=== PATIENT | female | born 2000 ===

== ENCOUNTER 2021-07-15 23:24 | Emergency (ER) | payer MEDICAID ==
[2021-07-16 01:25] LABS: Bilirubin,Urine NEG (Negative); Blood,Urine LG (Negative); Color,Urine Straw (Yellow); Mucus,Urine FEW /HPF; Protein,Urine <15 mg/dL mg/dL (Negative); Urobilinogen,Urine < 2.0 mg/dL (<2.0)
[2021-07-16 01:26] LABS: Basophils % (Auto) 0.4 % (0.0-1.8); Eosinophils # (Auto) 0.1 K/mm3 (0.0-0.4); Eosinophils % (Auto) 1.9 % (0.0-4.3); Hematocrit 34.5 % (30.3-42.9); Hemoglobin 11.5 gm/dl (10.1-14.3); Lymphocytes # (Auto) 1.7 K/mm3 (1.2-5.4); Lymphocytes % (Auto) 30.2 % (13.4-35.0); Mean Corpuscular HGB Conc 33 % (30-34); Mean Corpuscular Volume 88 fl (79-97); Monocytes # (Auto) 0.4 K/mm3 (0.0-0.8); Monocytes % (Auto) 7.6 % (0.0-7.3); Platelet Count 216 K/mm3 (140-440); Red Blood Count 3.92 M/mm3 (3.65-5.03); Red Cell Distribution Width 13.6 % (13.2-15.2)
--- NOTE | 2021-07-16 09:39 | Ultrasound Report ---
[facility] OBSTETRIC ULTRASOUND HISTORY: Vaginal bleeding during COMPARISON: None. TECHNIQUE: Routine transabdominal OB ultrasound performed. FINDINGS: Uterus: Mildly enlarged measuring 10.9 x 8.5 x 9.0 cm. Gestational Sac: Well-defined oval shape and intrauterine in location. Yolk Sac: Not seen Fetus/Embryo: [place]-rump length of 2.89 cm, corresponding to an estimated gestational age of 9 weeks 5 days. Embryonic/ anatomy is too small for evaluation. Embryonic/ cardiac activity: 0bpm Placenta: Too small for evaluation. Amniotic fluid volume: Subjectively appropriate for gestational age. Ovaries: The right ovary measures 2.7 x 2.1 x 1.8 cm and contains a 1.7 cm cyst. The left ovary measu res 2.2 x 1.7 x 3.0 cm and contains a 2.4 cm cyst. Additional findings: None. IMPRESSION No heart rate is detected consistent with intrauterine demise. Bilateral ovarian cysts as described. Signer Name: Kaushik Gandhi Jr, MD Signed: 07/16/2021 9:35 AM Workstation Name: [id number]
--- NOTE | 2021-07-16 10:15 | Emergency Department Report ---
ED Female HPI - General Chief complaint: Vaginal Bleeding Stated complaint: 13 WKS PREG/BLEEDING Time Seen by Provider: 07/16/21 08:36 Source: patient Mode of arrival: Ambulatory Limitations: No Limitations - History of Present Illness Initial comments: Patient is a 21-year-old female that comes to the emergency room with vaginal bleeding. She reports being 13 weeks . Her last menstrual was the end of March. She states that she started having some spotting yesterday and then the bleeding increased today. Patient has mild cramping. She is ambulatory to the ER. This is her second . She has 1 living child. Complaint: vaginal bleeding -: Gradual, days(s) Severity: mild Quality: cramping Consistency: intermittent Improves with: none Worsens with: none Are you Now?: Yes Associated Symptoms: denies other symptoms, vaginal bleeding - Related Data Sexually active: Yes : 2 Para: 1 Allergies Allergy/AdvReac Type Severity Reaction Status Date / Time No Known Allergies Allergy Verified 07/16/21 00:03 ED Review of Systems ROS: Stated complaint: 13 WKS PREG/BLEEDING Other details as noted in HPI Comment: All other systems reviewed and negative ED Past Medical Hx - Past Medical History Previous Medical History?: No - Surgical History Past Surgical History?: No - Family History Family history: no significant - Social History Smoking Status: Never Smoker Substance Use Type: None ED Physical Exam - General Limitations: No Limitations General appearance: alert, in no apparent distress - Head Head exam: Present: atraumatic, normocephalic - Eye Eye exam: Present: normal appearance - ENT ENT exam: Present: mucous membranes moist - Neck Neck exam: Present: normal inspection - Respiratory Respiratory exam: Present: normal lung sounds bilaterally. Absent: respiratory distress - Cardiovascular Cardiovascular Exam: Present: regular rate, normal rhythm. Absent: systolic murmur, diastolic murmur, rubs, gallop - GI/Abdominal GI/Abdominal exam: Present: soft, normal bowel sounds - Extremities Exam Extremities exam: Present: normal inspection - Back Exam Back exam: Present: normal inspection - Neurological Exam Neurological exam: Present: alert, oriented X3 - Psychiatric Psychiatric exam: Present: normal affect, normal mood - Skin Skin exam: Present: warm, dry, intact, normal color. Absent: rash ED Course Vital Signs 07/15/21 07/16/21 07/16/21 23:58 10:39 10:43 Temperature 98.2 F 98.1 F Pulse Rate 83 82 Respiratory 18 14 Rate Blood Pressure 119/48 Blood Pressure 120/72 [Left] O2 Sat by Pulse 99 99 96 Oximetry - Reevaluation(s) Reevaluation #1: 07/16/21 I asked the guidance secretary to page ORDER CLERK. She told me that the cell phone number was available on the call list. On-call was Dr. Ibrahim however when I called her she reports being out of town due to a family emergency. Dr. Felipa sanchez is taking call for her. I then called L&D to go to Dr. Arita's number. They told me that Dr. Arita is actively operating in the operating room. And told me to call their ORDER CLERK who is Flores. I spoke with Flores regarding this patient presented her labs and ultrasound findings. They will follow her outpatient. ED Medical Decision Making - Lab Data Result diagrams: 07/16/21 00:12 - Radiology Data Radiology results: report reviewed, image reviewed See report - Medical Decision Making Labs 07/16/21 07/16/21 07/16/21 00:12 00:12 00:12 WBC 5.7 RBC 3.92 Hgb 11.5 Hct 34.5 MCV 88 MCH 30 MCHC 33 RDW 13.6 Plt Count 216 Lymph % (Auto) 30.2 [place] % (Auto) 7.6 H Eos % (Auto) 1.9 Baso % (Auto) 0.4 Lymph # (Auto) 1.7 [place] # (Auto) 0.4 Eos # (Auto) 0.1 Baso # (Auto) 0.0 Seg Neutrophils % 59.9 Seg Neutrophils # 3.4 HCG, Quant 2527 H Urine Color Urine Turbidity Urine pH Ur Specific [place] Urine Protein Urine Glucose (UA) Urine Ketones Urine Blood Urine Nitrite Urine Bilirubin Urine Urobilinogen Ur Leukocyte Esterase Urine WBC (Auto) Urine RBC (Auto) U Epithel Cells (Auto) Urine Mucus Blood Type O POSITIVE 07/16/21 Unknown WBC RBC Hgb Hct MCV MCH MCHC RDW Plt Count Lymph % (Auto) [place] % (Auto) Eos % (Auto) Baso % (Auto) Lymph # (Auto) [place] # (Auto) Eos # (Auto) Baso # (Auto) Seg Neutrophils % Seg Neutrophils # HCG, Quant Urine Color Straw Urine Turbidity Clear Urine pH 7.0 Ur Specific [place] 1.006 Urine Protein <15 mg/dl Urine Glucose (UA) Neg Urine Ketones Neg Urine Blood Lg Urine Nitrite Neg Urine Bilirubin Neg Urine Urobilinogen < 2.0 Ur Leukocyte Esterase Neg Urine WBC (Auto) 4.0 Urine RBC (Auto) 1.0 U Epithel Cells (Auto) 3.0 Urine Mucus Few Blood Type Vital Signs 07/15/21 23:58 Temperature 98.2 F Pulse Rate 83 Respiratory 18 Rate Blood Pressure 119/48 O2 Sat by Pulse 99 Oximetry Rh+ Beta quant noted UA noted Ultrasound noted Patient updated on the findings of above. She understands that she is most likely miscarrying. She verbalizes understanding of needing to see an ORDER CLERK in 48 hours for recheck of her labs. I also informed her that they need to make sure that everything has been expelled from the uterus. I told her that she could see our on-call physician which have given her referral to or her own ORDER CLERK. She verbalizes understanding. Patient discharged home with discharge plan of care including diet, activity, medications and follow-up. She verbalizes understanding - Differential Diagnosis Rule out miscarriage Critical care attestation.: If time is entered above; I have spent that time in minutes in the direct care of this critically ill patient, excluding procedure time. ED Disposition Clinical Impression: Threatened Disposition: HOME / SELF CARE / HOMELESS Is pt being admited?: No Does the pt Need Aspirin: No Condition: Stable Instructions: Threatened Miscarriage Additional Instructions: Pelvic rest Motrin for pain Follow-up with [facility] ORDER CLERK next week for follow-up lab work. If you have increasing pain call them sooner. I have spoke with the nurse practitioner Flores who is working with the ORDER CLERK Dr. Arita he says if you have problems they will see you sooner than next week. Call today however to make your appointment so that she have one scheduled for next week Referrals: NATALIE IBRAHIM MD [Staff Physician] - 3-5 Days Forms: Work/School Release Form(ED) Time of Disposition: 10:23
[2021-07-16 10:44] VITALS: BP 120/72
== END 2021-07-16 10:44 | disposition home or self-care (01) ==
LOC: ED 23:24
DX: O20.0 Threatened abortion (principal); Z3A.13 13 weeks gestation of pregnancy
CPT/HCPCS: 76801; 81001; 84702; 85025; 86900; 86901; 99284